=== PATIENT | female | born 1935 | race African-American/Black ===

== ENCOUNTER 2023-06-13 13:24 | Inpatient (IN) | payer MEDICARE, OTHER ==
[~2023-06-13] VITALS: Ht 152.4 cm; Wt 49.9 kg
[~2023-06-13 13:24] MED LIST: HALO50AM2 IM
[2023-06-13] MEDS ORDERED: HALO5AMP3 IM (14:37)
[2023-06-13] MEDS ORDERED: TRAZ-182 PO (14:37)
[2023-06-13] MEDS ORDERED: MULT-754 PO (14:37)
[2023-06-13] MEDS ORDERED: DONE10TA11 PO (14:37)
[2023-06-13] MEDS ORDERED: ACET325T53 PO (14:37)
[2023-06-13 16:38] LABS: BASOPHILS % (AUTO) 0.6 % (0.0-2.0); EOSINOPHILS # (AUTO) 0.1 K/uL (0.0-0.7); EOSINOPHILS % (AUTO) 1.4 % (0.0-6.0); HEMATOCRIT 34 % (33-45); HEMOGLOBIN 11.2 g/dL (11.5-14.8); LYMPHOCYTES # (AUTO) 1.9 K/uL (0.8-4.8); LYMPHOCYTES % (AUTO) 26.6 % (20.0-44.0); MEAN CORPUSCULAR HEMOGLOBIN 30 PG (26.0-33.0); MEAN CORPUSCULAR HGB CONC 33 g/dl (31.0-36.0); MEAN CORPUSCULAR VOLUME 91 fL (82-100); MONOCYTES # (AUTO) 0.3 K/uL (0.1-1.30); MONOCYTES % (AUTO) 4.7 % (2.0-12.0); NEUTROPHILS # (AUTO) 4.7 K/uL (1.8-8.9); NEUTROPHILS % (AUTO) 66.7 % (43.0-81.0); PLATELET COUNT (AUTO) 215 K/uL (150-450); RED BLOOD CELL COUNT(AUTO) 3.73 MIL/uL (4.0-5.2); RED CELL DISTRIBUTION WIDTH 13.7 % (11.5-15.0)
[2023-06-13 16:45] LABS: CALCIUM, SERUM 8.7 mg/dL (8.5-10.1); CARBON DIOXIDE 26 mmol/L (21-32); CHLORIDE 109 mmol/L (98-107); GLUCOSE 131 mg/dL (74-106); POTASSIUM 3.7 mmol/L (3.5-5.1); SODIUM SERUM 143 mmol/L (136-145); UREA NITROGEN, BLOOD 12 mg/dL (7-18)
[2023-06-13 16:50] VITALS: O2SAT 99
[2023-06-13 16:55] LABS: BILIRUBIN,URINE Negative (NEGATIVE); BLOOD, URINE Negative Ery/uL (NEGATIVE); COLOR,URINE YELLOW (YELLOW); KETONES,URINE Negative (NEGATIVE); LEUKOCYTE ESTERASE ,URINE Small (NEGATIVE); NITRITE, URINE Negative (NEGATIVE); PH,URINE 5.5 (5.0-8.0); PROTEIN,URINE 30 mg/dl (NEGATIVE); UGLUCOSE Negative (NEGATIVE); UROBILINOGEN,URINE 0.2 EU/dL (0.2)
[2023-06-13 16:55] LABS: ALANINE AMINOTRANSFERASE 21 U/L (12-78); ALBUMIN 3.2 g/dL (3.4-5.0); ALCOHOL, BLOOD < 3 mg/dL (0-10); ALKALINE PHOSPHATASE 151 U/L (46-116); ASPARTATE AMINOTRANSFERASE 15 U/L (15-37); BILIRUBIN,DIRECT 0.1 mg/dL (0.0-0.2); BILIRUBIN,TOTAL 0.2 mg/dL (0.2-1.0); TOTAL PROTEIN, SERUM 6.3 g/dL (6.4-8.2)
[2023-06-13 16:57] LABS: SALICYLATE 0.2 mg/dL (2.8-20.0)
[2023-06-13 16:58] LABS: ACETAMINOPHEN < 2 ug/ml (10-30)
[2023-06-13 16:59] LABS: APPEARANCE,URINE HAZY (CLEAR)
[2023-06-13 17:15] LABS: AMPHETAMINE, URINE NEGATIVE (NEGATIVE); BARBITURATE, URINE NEGATIVE (NEGATIVE); BENZODIAZEPINE, URINE NEGATIVE (NEGATIVE); OPIATE, URINE NEGATIVE (NEGATIVE); PHENCYCLIDINE SCREEN,URINE NEGATIVE (NEGATIVE)
[2023-06-13 17:27] LABS: ADD URINE CULTURE YES; BACTERIA,URINE Moderate /HPF (None Seen); SQUAMOUS EPITHELIAL CELL,UR Moderate /HPF (None Seen); WBC,URINE 21-50 /HPF (0-3)
[2023-06-13 17:28] LABS: MUCUS,URINE Few /LPF (None Seen)
[2023-06-13 17:31] LABS: CANNABINOID, URINE NEGATIVE (NEGATIVE); COCCAINE, URINE NEGATIVE (NEGATIVE)
[2023-06-13] MEDS: CEPHALEXIN MONOHYDRATE 500 MG CAPSULE PO ONE (18:12)
[2023-06-13] MEDS ORDERED: QUETIAPINE FUMARATE 25 MG TABLET PO PRN (23:00)
[2023-06-13] MEDS: BLOOD SUGAR DIAGNOSTIC 1 EACH STRIP IN ONE (23:00)
[2023-06-13] MEDS ORDERED: ACETAMINOPHEN 325 MG TABLET PO PRN (23:00)
[2023-06-13] MEDS ORDERED: MAGNESIUM HYDROXIDE 30 ML UDC PO PRN (23:00)
[2023-06-13] MEDS ORDERED: ZOLPIDEM TARTRATE 5 MG TABLET PO PRN (23:00)
[2023-06-13] MEDS ORDERED: MAG HYDROX/AL HYDROX/SIMETH 30 ML UDC PO PRN (23:00)
[2023-06-14] MEDS: MULTIVITAMIN/LUTEIN/MINERALS 1 TAB PO SCH (11:30)
[2023-06-14] MEDS: HALOPERIDOL DECANOATE IM 100 MG/ML AMPUL IM ONE (12:00)
[2023-06-14] MEDS: CEPHALEXIN MONOHYDRATE 500 MG CAPSULE PO SCH (12:00)
[2023-06-14] MEDS: OLANZAPINE ZYDIS 5 MG TAB.RAPDIS PO SCH (21:00)
[2023-06-14] MEDS: TRAZODONE 50 MG TABLET PO SCH (22:00)
[2023-06-14] MEDS: DONEPEZIL 5 MG TABLET PO SCH (22:00)
[2023-06-14] MEDS: MIRTAZAPINE 15 MG TABLET PO SCH (22:00)
[2023-06-16 08:00] VITALS: BP 119/63; TEMP 98; O2SAT 98
[2023-06-16] MEDS: DIVALPROEX SODIUM 125 MG TABLET.DR PO SCH (12:30)
[2023-06-19] MEDS: HALOPERIDOL DECANOATE IM 100 MG/ML AMPUL IM ONE (13:51)
[2023-06-19] MEDS: HALOPERIDOL LACTATE INJ 5 MG/ML VIAL IM PRN (21:39)
[2023-06-20] MEDS: DIVALPROEX SODIUM 125 MG TABLET.DR PO SCH (21:00)
[2023-06-20] MEDS: HALOPERIDOL LACTATE INJ 5 MG/ML VIAL IM PRN (22:12)
[2023-06-23] MEDS: OLANZAPINE ZYDIS 5 MG TAB.RAPDIS PO SCH (21:00)
[2023-06-24] MEDS: OLANZAPINE ZYDIS 5 MG TAB.RAPDIS PO SCH (09:00)
[2023-06-24 16:00] VITALS: BP 168/95; TEMP 98; O2SAT 99
[2023-06-24 20:42] VITALS: BP 120/57; TEMP 98; O2SAT 98
[2023-06-24] MEDS: HALOPERIDOL LACTATE INJ 5 MG/ML VIAL IM PRN (21:18)
[2023-06-25 08:00] VITALS: BP 150/62; TEMP 97.9; O2SAT 100
[2023-06-25] MEDS: OLANZAPINE ZYDIS 5 MG TAB.RAPDIS PO SCH (09:32)
[2023-06-25 16:00] VITALS: BP 150/81; TEMP 98.1; O2SAT 100
[2023-06-25 21:02] VITALS: BP 145/54; TEMP 97.8; O2SAT 100
[2023-06-26 08:00] VITALS: BP 172/72; TEMP 97.9; O2SAT 98
== END 2023-06-28 14:03 | DRG 885 ==
LOC: ER 13:30 → GPS 22:13
PROVIDERS: ADMIT Psychiatry & Neurology Psychiatry; ATTEND Nurse Practitioner Acute Care
DX: F20.0 Paranoid schizophrenia (principal); G93.41 Metabolic encephalopathy; F03.92 Unspecified dementia, unspecified severity, with psychotic disturbance; F03.911 Unspecified dementia, unspecified severity, with agitation; F03.918 Unspecified dementia, unspecified severity, with other behavioral disturbance; F03.93 Unspecified dementia, unspecified severity, with mood disturbance; N39.0 Urinary tract infection, site not specified; E44.1 Mild protein-calorie malnutrition; F29 Unspecified psychosis not due to a substance or known physiological condition; I10 Essential (primary) hypertension; D64.9 Anemia, unspecified; H40.9 Unspecified glaucoma; M13.0 Polyarthritis, unspecified; Z79.899 Other long term (current) drug therapy; R62.7 Adult failure to thrive; Z73.6 Limitation of activities due to disability; B96.20 Unspecified Escherichia coli [E. coli] as the cause of diseases classified elsewhere; E88.09 Other disorders of plasma-protein metabolism, not elsewhere classified; L85.3 Xerosis cutis; Z91.148 Patient's other noncompliance with medication regimen for other reason
CPT/HCPCS: 36415; 80048-TC; 80076-TC; 81001; 85025-TC; 87081-TC; 87086-TC; 97110-TC; 97116-TC; 97530-TC; G0480; J1630; J1631